=== PATIENT | female | born 1970 ===

== ENCOUNTER 2017-02-08 19:51 | Emergency (ER) | payer OTHER ==
--- NOTE | 2017-02-08 21:56 | ED CLINICAL REPORT ---
Clinical Report - Physicians/Mid Levels [facility] [address] [place] [address] 02/08/2017 19:56 Patient: JOLLY DURBIN Time Seen: 20:32; initial patient contact, initial documentation, patient care assumed. Arrived- By private vehicle. Historian- patient. HISTORY OF PRESENT ILLNESS Chief Complaint: DYSURIA. This started today and still present. It was abrupt in onset. The symptoms are described as moderate. Modifying factors. Not worsened by anything. Not relieved by anything. No abdominal pain, pelvic pain, vaginal pain, low back pain or flank pain. No abnormal bleeding, vaginal discharge or pain with urination. The patient has had urinary frequency and hematuria. The patient has had urgency of urination (has urge to go, but then very little comes out). Not sexually active. Denies current . Similar symptoms previously: Occasionally, milder. Recent medical care: Not recently seen/assessed. REVIEW OF SYSTEMS No vomiting, diarrhea, fever, difficulty breathing or chest pain. All systems otherwise negative, except as recorded above. PAST HISTORY See nurses notes. ( PROBLEMS: UTI - Urinary Tract Infection. --20:25 Luz Florian, R.N. ADDITIONAL SURGERIES: . Jackelyn leon. --20:25 Luz Florian, R.N.). SOCIAL HISTORY Never smoker. Occasional alcohol use. No drug use. No recent travel. Is a local resident. FAMILY HISTORY Negative. ADDITIONAL NOTES The nursing notes have been reviewed with agreement regarding the chief complaint, HPI, ROS, PMH and patient medications and allergies. PHYSICAL EXAM Vital Signs: 02/08/2017 20:23 BP: 102/84. HR: 97. RR: 18. O2 saturation: 100%. Temp: 98.3 F. Pain level now: 0/10. Have been reviewed as normal and appear to be correct. Appearance: Alert. Oriented X3. No acute distress. HEENT: Normal external inspection. ENT: Pharynx normal. Neck: Neck supple. CVS: Heart sounds normal. Respiratory: No respiratory distress. Breath sounds normal. Chest nontender. Abdomen: Soft and nontender. Bowel sounds normal. No organomegaly. No mass. Mildly obese. Back: Normal external inspection. Skin: Skin warm and dry. Normal skin color. No rash. Normal skin turgor. Extremities: Extremities nontender. No lower extremity edema. Neuro: Oriented X 3. Mood/affect normal. No motor deficit. No sensory deficit. LABS, X-RAYS, AND EKG Laboratory Tests: UA-Culture if indicated: (MICHAEL: 02/08/2017 20:25) ( [facility] 02/08/2017 21:23) Final results Test Result Flag Units (Reference) URINE COLOR STRAW URINE APPEARANCE SL CLOUDY URINE GLUCOSE NEGATIVE (NEGATIVE) URINE BILIRUBIN NEGATIVE (NEGATIVE) URINE KETONE NEGATIVE (NEGATIVE) URINE SPECIFIC GRAVITY 1.015 (1.010-1.030) URINE PH 7.0 (5.0-8.0) URINE PROTEIN 1+ (NEGATIVE) URINE UROBILINOGEN 0.2 EU/dL (0.2-1.0) URINE NITRITE POSITIVE (NEGATIVE) URINE BLOOD 2+ (NEGATIVE) URINE LEUK ESTERASE POSITIVE (NEGATIVE) URINE RBC 5-10 rbc/hpf (0-1) URINE WBC 50-75 wbc/hpf (0-1) URINE EPITHELIAL CELLS 1-3 EPI/hpf (0-5) URINE BACTERIA MODERATE (2+ TO 3+) (NONE SEEN) URINE COMMENT CULTURE INDICATED URINE CULTURES ARE SET-UP BASED ON THE FOLLOWING CRITERIA:POSITIVE NITRITEPOSITIVE LEUKOCYTE ESTERASEGREATER THAN 10 WHITE BLOOD CELLSMODERATE (2+) OR GREATER BACTERIA Urine: (MICHAEL: 02/08/2017 20:25) ( [facility] 02/08/2017 21:08) Final results Test Result Flag Units (Reference) URINE NEGATIVE . PROGRESS AND PROCEDURES Patient counseled in person regarding the patient's stable condition, test results and diagnosis. 21:37. Differential Diagnosis: Other possible considerations: uti, pyelo, kidney disease, renal stones. Above considerations are based on history, physical exam, reassessment and laboratory data. Differential diagnosis was discussed with patient. Disposition: Discharged home in good and unchanged condition (21:56). Condition: good and stable. CLINICAL IMPRESSION Acute urinary tract infection with cystitis. No pyelonephritis or hematuria. Not associated with indwelling catheter or obstruction. INSTRUCTIONS Drink plenty of fluids for the next 24 hours until better. Warnings: GENERAL WARNINGS: Return or contact your physician immediately if your condition worsens or changes unexpectedly, if not improving as expected, or if other problems arise. Specifically return if problem worsens. Prescription Medications: Pyridium 200 mg: take 1 orally every 8 hours as needed for urinary problems. Dispense six (6). No refills. Substitution is permissible. Bactrim DS 800 mg / 160 mg: Take 1 tablet orally every 12 hours for 7 days. Dispense fourteen (14). No refills. Substitution is permissible. Follow-up: Follow up with your doctor in about three days even if well. Call for an appointment. Summary of care provided to patient. Understanding of the discharge instructions verbalized by patient. (Electronically signed by Jolly Danielle A.R.N.P. 02/08/2017 23:11)
--- NOTE | 2017-02-08 21:56 | ED ORDER SUMMARY ---
..... Patient: RAMAKRISHNAJOLLY OrderSheet [facility] VisitID: [id number] [place] [address] 46y, F Registration Date/Time: 02/08/2017 ORDER SHEET Weight: 86.1 kg Allergies: No Known Drug Allergy GENERAL ORDERS: Bladder Scan (20:32 02/08/2017 HBivens A.R.N.P.) (20:46 JSanders R.N.) UA-Culture if indicated Urgent (20:48 02/08/2017 HBivens A.R.N.P.) (20:48 JSanders R.N.) Urine Urgent (20:48 02/08/2017 HBivens A.R.N.P.) (20:48 JSanders R.N.) MEDICATION ORDERS: IV FLUIDS: ORDER SHEET NOTES: [Electronically signed by Daiana Bejarano R.N. (22:08 02/08/2017)] [Electronically signed by Jolly Danielle.R.N.P. (23:11 02/08/2017)] [Electronically locked/signed by Daiana Bejarano R.N. (22:08 02/08/2017)]
--- NOTE | 2017-02-08 21:56 | ED ORDER SUMMARY ---
..... Patient: RAMAKRISHNAJOLLY OrderSheet [facility] VisitID: [id number] [address] [place] [address] 46y, F Registration Date/Time: 02/08/2017 ORDER SHEET Weight: 86.1 kg Allergies: No Known Drug Allergy GENERAL ORDERS: Bladder Scan (20:32 02/08/2017 HBivens A.R.N.P.) (20:46 JSanders R.N.) UA-Culture if indicated Urgent (20:48 02/08/2017 HBivens A.R.N.P.) (20:48 JSanders R.N.) Urine Urgent (20:48 02/08/2017 HBivens A.R.N.P.) (20:48 JSanders R.N.) MEDICATION ORDERS: IV FLUIDS: ORDER SHEET NOTES: [Electronically signed by Daiana Bejarano R.N. (22:08 02/08/2017)] [Electronically signed by Jolly Danielle.R.N.P. (23:11 02/08/2017)] [Electronically locked/signed by Daiana Bejarano R.N. (22:08 02/08/2017)]
--- NOTE | 2017-02-08 21:56 | ED NURSING NOTES ---
Clinical Report - Nurses [facility] [address] [place] [address] 02/08/2017 19:56 Patient: PADILLA DURBIN TRIAGE Triage time 20:Feb 08 2017. Acuity: LEVEL 3. Chief Complaint: URGENCY and FREQUENCY. 20:27 02/08/17. SEPSIS SCREEN: Sepsis Screen. Negative (no infection suspected/documented). YESY COMA SCORE: Yesy Coma Scale: 15- eyes open spontaneously (4); best verbal response- oriented x 4 (5); best motor response- obeys commands (6). --20:27 Luz Florian R.N. 20:23 02/08/17. BP: 102/84 (regular adult cuff) taken on the left arm, while sitting. HR: 97. RR: 18. O2 saturation: 100% on room air. Temp: 98.3 F (oral). Pain level now: 0/10. --20:27 Luz Florian R.N. 20:29 02/08/17. --20:29 Luz Florian R.N. Weight: 86.1 kg. Height/Length: 63 inches. BMI: 33.6. --20:24 Luz Florian R.N. Medications None. --20:24 Luz Florian R.N. Allergies No Known Drug Allergy. --20:24 Luz Florian R.N. History Historian: patient. Primary physician ([facility]). This started today. She has had hematuria. Treatment DOG RACES MANAGER: None. PAST MEDICAL HX: Last normal menstrual period was 1 week ago- months ago. SOCIAL HX: Never smoker. Occasional alcohol use. No drug use. No infectious disease exposure. ABUSE ASSESSMENT: No report of abuse. SELF HARM ASSESSMENT: A self harm assessment was performed. The patient answered "no" to the question "Do you have thoughts of harming or killing yourself?" and "Have you recently had thoughts about harming or killing others?". --20:27 Luz Florian R.N. ( Patient says she feels pressure like she has to urinate but does not urinate too much, She has had this problem before when she had a UTI). --20:29 Luz Florian R.N. PROBLEMS: UTI - Urinary Tract Infection. --20:25 Luz Florian R.N. ADDITIONAL SURGERIES: . Jackelyn leon. --20:25 Luz Florian R.N. Interventions ID band on patient. To treatment room. --20:27 Luz Florian R.N. PHYSICAL ASSESSMENT 20:28 02/08/17. Ambulatory to room. Patient gowned. GENERAL / NEURO / PSYCH: Alert. Oriented X 4. Appears in no acute distress. HEENT: Mucous membranes are pink. RESPIRATORY: Respirations not labored. Breath sounds within normal limits. CVS: Normal heart rate and rhythm. Capillary refill less than 2 seconds. GI / : Abdomen soft and nontender. Bowel sounds within normal limits. No vaginal bleeding. No vaginal discharge. No genital lesions noted. SKIN: Skin is warm and dry. --20:28 Luz Florian R.N. NURSING PROGRESS NOTES 20:28 02/08/17. The plan of care for this patient has been created. Monitoring of patient in place. Patient gowned. Head of bed elevated. Reassurance given. Two patient identifiers checked. Call light placed in reach. Side rails up x 1. Bed placed in lowest position. Brakes of bed on. Patient ready for evaluation- chart flagged and ED physician notified. --20:28 Luz Florian R.N. 20:47 02/08/17. ( Bladder scan resulted 65cc). --20:47 Luz Florian R.N. ( Patient notified of her UTI, not , she would like to just get a script and leave. Will inform RECORD CLERK). --21:32 Luz Florian R.N. 21:30 02/08/17. BP: 94/63 (regular adult cuff) taken on the left arm, while sitting. HR: 89. RR: 18. O2 saturation: 99% on room air. Pain level now: 0/10. --21:32 Luz Florian R.N. DISPOSITION / DISCHARGE 21:30 02/08/17. BP: 94/63 (regular adult cuff) taken on the left arm, while sitting. HR: 89. RR: 18. O2 saturation: 99% on room air. Pain level now: 0/10. --22:07 Daiana Bejarano R.N. Condition at departure: stable. No learning barriers present. Discharge instructions provided and reviewed with the patient. Reviewed medication(s) side effects, precautions, dosing and course information. Prescription(s) given to the patient. Patient verbalized understanding. Written instructions provided in Ugandan. The patient was discharged home and accompanied by street openings inspector. She left the Emergency Department ambulatory and via private vehicle. Rn Procedures driving. --22:08 Daiana Bejarano R.N. Locked/Released at 02/08/2017 22:08 by Daiana Bejarano R.N.
--- NOTE | 2017-02-08 21:56 | ED NURSING NOTES ---
Clinical Report - Nurses [facility] [address] [place] [address] 02/08/2017 19:56 Patient: PADILLA DURBIN TRIAGE Triage time 20:Feb 08 2017. Acuity: LEVEL 3. Chief Complaint: URGENCY and FREQUENCY. 20:27 02/08/17. SEPSIS SCREEN: Sepsis Screen. Negative (no infection suspected/documented). YESY COMA SCORE: Yesy Coma Scale: 15- eyes open spontaneously (4); best verbal response- oriented x 4 (5); best motor response- obeys commands (6). --20:27 Luz Florian R.N. 20:23 02/08/17. BP: 102/84 (regular adult cuff) taken on the left arm, while sitting. HR: 97. RR: 18. O2 saturation: 100% on room air. Temp: 98.3 F (oral). Pain level now: 0/10. --20:27 Luz Florian R.N. 20:29 02/08/17. --20:29 Luz Florian R.N. Weight: 86.1 kg. Height/Length: 63 inches. BMI: 33.6. --20:24 Luz Florian R.N. Medications None. --20:24 Luz Florian R.N. Allergies No Known Drug Allergy. --20:24 Luz Florian R.N. History Historian: patient. Primary physician ([facility]). This started today. She has had hematuria. Treatment ACID WASHER OPERATOR: None. PAST MEDICAL HX: Last normal menstrual period was 1 week ago- months ago. SOCIAL HX: Never smoker. Occasional alcohol use. No drug use. No infectious disease exposure. ABUSE ASSESSMENT: No report of abuse. SELF HARM ASSESSMENT: A self harm assessment was performed. The patient answered "no" to the question "Do you have thoughts of harming or killing yourself?" and "Have you recently had thoughts about harming or killing others?". --20:27 Luz Florian R.N. ( Patient says she feels pressure like she has to urinate but does not urinate too much, She has had this problem before when she had a UTI). --20:29 Luz Florian R.N. PROBLEMS: UTI - Urinary Tract Infection. --20:25 Luz Florian R.N. ADDITIONAL SURGERIES: . Jackelyn leon. --20:25 Luz Florian R.N. Interventions ID band on patient. To treatment room. --20:27 Luz Florian R.N. PHYSICAL ASSESSMENT 20:28 02/08/17. Ambulatory to room. Patient gowned. GENERAL / NEURO / PSYCH: Alert. Oriented X 4. Appears in no acute distress. HEENT: Mucous membranes are pink. RESPIRATORY: Respirations not labored. Breath sounds within normal limits. CVS: Normal heart rate and rhythm. Capillary refill less than 2 seconds. GI / : Abdomen soft and nontender. Bowel sounds within normal limits. No vaginal bleeding. No vaginal discharge. No genital lesions noted. SKIN: Skin is warm and dry. --20:28 Luz Florian R.N. NURSING PROGRESS NOTES 20:28 02/08/17. The plan of care for this patient has been created. Monitoring of patient in place. Patient gowned. Head of bed elevated. Reassurance given. Two patient identifiers checked. Call light placed in reach. Side rails up x 1. Bed placed in lowest position. Brakes of bed on. Patient ready for evaluation- chart flagged and ED physician notified. --20:28 Luz Florian R.N. 20:47 02/08/17. ( Bladder scan resulted 65cc). --20:47 Luz Florian R.N. ( Patient notified of her UTI, not , she would like to just get a script and leave. Will inform HYDRAULIC AND PLUMBING INSTALLER). --21:32 Luz Florian R.N. 21:30 02/08/17. BP: 94/63 (regular adult cuff) taken on the left arm, while sitting. HR: 89. RR: 18. O2 saturation: 99% on room air. Pain level now: 0/10. --21:32 Luz Florian R.N. DISPOSITION / DISCHARGE 21:30 02/08/17. BP: 94/63 (regular adult cuff) taken on the left arm, while sitting. HR: 89. RR: 18. O2 saturation: 99% on room air. Pain level now: 0/10. --22:07 Daiana Bejarano R.N. Condition at departure: stable. No learning barriers present. Discharge instructions provided and reviewed with the patient. Reviewed medication(s) side effects, precautions, dosing and course information. Prescription(s) given to the patient. Patient verbalized understanding. Written instructions provided in Welsh. The patient was discharged home and accompanied by mirror installer. She left the Emergency Department ambulatory and via private vehicle. Line Maintenance Technician driving. --22:08 Daiana Bejarano R.N. Locked/Released at 02/08/2017 22:08 by Daiana Bejarano R.N.
--- NOTE | 2017-02-08 23:11 | ED MED RECONCILIATION SUMMARY ---
Patient: RAMAKRISHNAJOLLY Medication Reconciliation Report [facility] VisitID: [id number] [place] [address] 46y, F Registration Date/Time: 02/08/2017 Weight: 86.1 kg Height/Length: 63 in. BMI: 33.6 ALLERGIES: No Known Drug Allergy The patient's Home Medications are listed below: NONE. The source(s) of the original Home Medication information: Not obtained. The following Medications were given to the patient in the Emergency Department: None. The following Medications were prescribed to the patient: Pyridium 200 mg: take 1 orally every 8 hours as needed for urinary problems. Dispense six (6). No refills. Substitution is permissible. -- Jolly Danielle, Sada.R.N.P. Bactrim DS 800 mg / 160 mg: Take 1 tablet orally every 12 hours for 7 days. Dispense fourteen (14). No refills. Substitution is permissible. -- Jolly Danielle A.R.N.P.
--- NOTE | 2017-02-08 23:11 | ED DISCHARGE INSTRUCTIONS ---
Patient: JOLLY DURBIN General Instructions [facility] VisitID: [id number] [place] [address] 46y, F Registration Date/Time: 02/08/2017 Acute urinary tract infection with cystitis. No pyelonephritis or hematuria. Not associated with indwelling catheter or obstruction. INSTRUCTIONS Drink plenty of fluids for the next 24 hours until better. Warnings: GENERAL WARNINGS: Return or contact your physician immediately if your condition worsens or changes unexpectedly, if not improving as expected, or if other problems arise. Specifically return if problem worsens. Prescription Medications: Pyridium 200 mg: take 1 orally every 8 hours as needed for urinary problems. Dispense six (6). No refills. Substitution is permissible. Bactrim DS 800 mg / 160 mg: Take 1 tablet orally every 12 hours for 7 days. Dispense fourteen (14). No refills. Substitution is permissible. Follow-up: Follow up with your doctor in about three days even if well. Call for an appointment. Summary of care provided to patient. Understanding of the discharge instructions verbalized by patient. ADDITIONAL INFORMATION Bladder Infection,Female (Adult) A bladder infection ("cystitis" or "UTI") usually causes a constant urge to urinate and a burning when passing urine. Urine may be cloudy, smelly or dark. There may be pain in the lower abdomen. A bladder infection occurs when bacteria from the vaginal area enter the bladder opening (urethra). This can occur from sexual intercourse, wearing tight clothing, dehydration and other factors. Home Care: Drink lots of fluids (at least 6-8 glasses a day, unless you must restrict fluids for other medical reasons). This will force the medicine into your urinary system and flush the bacteria out of your body. Avoid sexual intercourse until your symptoms are gone. Avoid caffeine, alcohol and spicy foods. These can irritate the bladder. A bladder infection is treated with antibiotics. You may also be given Pyridium (generic = phenazopyridine) to reduce the burning sensation. This medicine will cause your urine to become a bright orange color. The orange urine may stain clothing. You may wear a pad or panty-liner to protect clothing. Preventing Future Infections: Always wipe from front to back after a bowel movement. Keep the genital area clean and dry. Drink plenty of fluids each day to avoid dehydration. Both sexual partners should wash before intercourse. Urinate right after intercourse to flush out the bladder. Wear cotton underwear and cotton-lined panty hose; avoid tight-fitting pants. If you are on control pills and are having frequent bladder infections, discuss with your doctor. Follow Up: Return to this facility or see your doctor if ALL symptoms are not gone after three days of treatment. Get Prompt Medical Attention if any of the following occur: Fever of 100.4F (38C) or higher, or as directed by your healthcare provider No improvement by the third day of treatment Increasing back or abdominal pain Repeated vomiting; unable to keep medicine down Weakness, dizziness or fainting Vaginal discharge Pain, redness or swelling in the labia (outer vaginal area) Phenazopyridine Hydrochloride Oral tablet What is this medicine? PHENAZOPYRIDINE (fen az oh PEER i cynthia) is a pain reliever. It is used to stop the pain, burning, or discomfort caused by infection or irritation of the urinary tract. This medicine is not an antibiotic. It will not cure a urinary tract infection. How should I use this medicine? Take this medicine by mouth with a glass of water. Follow the directions on the prescription label. Take after meals. Take your doses at regular intervals. Do not take your medicine more often than directed. Do not skip doses or stop your medicine early even if you feel better. Do not stop taking except on your doctor's advice. Talk to your pharmacist technician regarding the use of this medicine in children. Special care may be needed. What side effects may I notice from receiving this medicine? Side effects that you should report to your doctor or health animal caregiver as soon as possible: allergic reactions like skin rash, itching or hives, swelling of the face, lips, or tongue blue or purple color of the skin difficulty breathing fever less urine unusual bleeding, bruising unusual tired, weak vomiting yellowing of the eyes or skin Side effects that usually do not require medical attention (report to your doctor or health animal caregiver if they continue or are bothersome): dark urine headache stomach upset What may interact with this medicine? Interactions are not expected. What if I miss a dose? If you miss a dose, take it as soon as you can. If it is almost time for your next dose, take only that dose. Do not take double or extra doses. Where should I keep my medicine? Keep out of the reach of children. Store at room temperature between 15 and 30 degrees C (59 and 86 degrees F). Protect from light and moisture. Throw away any unused medicine after the expiration date. What should I tell my health care provider before I take this medicine? They need to know if you have any of these conditions: bnvvwbg-1-bjuwmxcow dehydrogenase (G6PD) deficiency kidney disease an unusual or allergic reaction to phenazopyridine, other medicines, foods, dyes, or preservatives or trying to get breast-feeding What should I watch for while using this medicine? Tell your doctor or health animal caregiver if your symptoms do not improve or if they get worse. This medicine colors body fluids red. This effect is harmless and will go away after you are done taking the medicine. It will change urine to an dark orange or red color. The red color may stain clothing. Soft contact lenses may become permanently stained. It is best not to wear soft contact lenses while taking this medicine. If you are diabetic you may get a false positive result for sugar in your urine. Talk to your health care provider. Sulfamethoxazole, Trimethoprim Oral tablet What is this medicine? SULFAMETHOXAZOLE; TRIMETHOPRIM or SMX-TMP (suhl fuh meth OK theresa zohl; trye METH oh prim) is a combination of a sulfonamide antibiotic and a second antibiotic, trimethoprim. It is used to treat or prevent certain kinds of bacterial infections. It will not work for colds, flu, or other viral infections. How should I use this medicine? Take this medicine by mouth with a full glass of water. Follow the directions on the prescription label. Take your medicine at regular intervals. Do not take it more often than directed. Do not skip doses or stop your medicine early. Talk to your pharmacist technician regarding the use of this medicine in children. Special care may be needed. This medicine has been used in children as young as 2 months of age. What side effects may I notice from receiving this medicine? Side effects that you should report to your doctor or health animal caregiver as soon as possible: allergic reactions like skin rash or hives, swelling of the face, lips, or tongue breathing problems fever or chills, sore throat irregular heartbeat, chest pain joint or muscle pain pain or difficulty passing urine red pinpoint spots on skin redness, blistering, peeling or loosening of the skin, including inside the mouth unusual bleeding or bruising unusually weak or tired yellowing of the eyes or skin Side effects that usually do not require medical attention (report to your doctor or health animal caregiver if they continue or are bothersome): diarrhea dizziness headache loss of appetite nausea, vomiting nervousness What may interact with this medicine? Do not take this medicine with any of the following medications: aminobenzoate potassium dofetilide metronidazole This medicine may also interact with the following medications: ROMEL inhibitors like benazepril, enalapril, lisinopril, and ramipril cyclosporine digoxin diuretics indomethacin medicines for diabetes methenamine methotrexate phenytoin potassium supplements pyrimethamine sulfinpyrazone tricyclic antidepressants warfarin What if I miss a dose? If you miss a dose, take it as soon as you can. If it is almost time for your next dose, take only that dose. Do not take double or extra doses. Where should I keep my medicine? Keep out of the reach of children. Store at room temperature between 20 to 25 degrees C (68 to 77 degrees F). Protect from light. Throw away any unused medicine after the expiration date. What should I tell my health care provider before I take this medicine? They need to know if you have any of these conditions: anemia asthma being treated with anticonvulsants if you frequently drink alcohol containing drinks kidney disease liver disease low level of folic acid or ptyyylx-4-zuvltfhuk dehydrogenase poor nutrition or malabsorption porphyria severe allergies thyroid disorder an unusual or allergic reaction to sulfamethoxazole, trimethoprim, sulfa drugs, other medicines, foods, dyes, or preservatives or trying to get breast-feeding What should I watch for while using this medicine? Tell your doctor or health animal caregiver if your symptoms do not improve. Drink several glasses of water a day to reduce the risk of kidney problems. Do not treat diarrhea with over the counter products. Contact your doctor if you have diarrhea that lasts more than 2 days or if it is severe and watery. This medicine can make you more sensitive to the sun. Keep out of the sun. If you cannot avoid being in the sun, wear protective clothing and use a sunscreen. Do not use sun lamps or tanning beds/booths. You have been given the following additional information: Bladder Infection, Female (Adult) Phenazopyridine Hydrochloride Oral tablet Sulfamethoxazole, Trimethoprim Oral tablet (Electronically signed by Jolly Danielle A.R.N.P. 02/08/2017 23:11)
--- NOTE | 2017-02-08 23:11 | ED MED RECONCILIATION SUMMARY ---
Patient: RAMAKRISHNAJOLLY Medication Reconciliation Report [facility] VisitID: [id number] [place] [address] 46y, F Registration Date/Time: 02/08/2017 Weight: 86.1 kg Height/Length: 63 in. BMI: 33.6 ALLERGIES: No Known Drug Allergy The patient's Home Medications are listed below: NONE. The source(s) of the original Home Medication information: Not obtained. The following Medications were given to the patient in the Emergency Department: None. The following Medications were prescribed to the patient: Pyridium 200 mg: take 1 orally every 8 hours as needed for urinary problems. Dispense six (6). No refills. Substitution is permissible. -- Jolly Danielle, Sada.R.N.P. Bactrim DS 800 mg / 160 mg: Take 1 tablet orally every 12 hours for 7 days. Dispense fourteen (14). No refills. Substitution is permissible. -- Jolly Danielle A.R.N.P.
--- NOTE | 2017-02-08 23:11 | ED MAR SUMMARY ---
..... Medication Administration Record [facility] [address] [place], [place] [id number] Patient: PADILLA DURBIN Visit ID: [id number] 46y, F Weight: 86.1 kg Height/Length: 63 in BMI: 33.6 ALLERGIES: No Known Drug Allergy
--- NOTE | 2017-02-08 23:11 | ED MAR SUMMARY ---
..... Medication Administration Record [facility] [address] [place] [id number] Patient: PADILLA DURBIN Visit ID: [id number] 46y, F Weight: 86.1 kg Height/Length: 63 in BMI: 33.6 ALLERGIES: No Known Drug Allergy
--- NOTE | 2017-02-08 23:11 | ED DISCHARGE INSTRUCTIONS ---
Patient: JOLLY DURBIN General Instructions [facility] VisitID: [id number] [place] [address] 46y, F Registration Date/Time: 02/08/2017 Acute urinary tract infection with cystitis. No pyelonephritis or hematuria. Not associated with indwelling catheter or obstruction. INSTRUCTIONS Drink plenty of fluids for the next 24 hours until better. Warnings: GENERAL WARNINGS: Return or contact your physician immediately if your condition worsens or changes unexpectedly, if not improving as expected, or if other problems arise. Specifically return if problem worsens. Prescription Medications: Pyridium 200 mg: take 1 orally every 8 hours as needed for urinary problems. Dispense six (6). No refills. Substitution is permissible. Bactrim DS 800 mg / 160 mg: Take 1 tablet orally every 12 hours for 7 days. Dispense fourteen (14). No refills. Substitution is permissible. Follow-up: Follow up with your doctor in about three days even if well. Call for an appointment. Summary of care provided to patient. Understanding of the discharge instructions verbalized by patient. ADDITIONAL INFORMATION Bladder Infection,Female (Adult) A bladder infection ("cystitis" or "UTI") usually causes a constant urge to urinate and a burning when passing urine. Urine may be cloudy, smelly or dark. There may be pain in the lower abdomen. A bladder infection occurs when bacteria from the vaginal area enter the bladder opening (urethra). This can occur from sexual intercourse, wearing tight clothing, dehydration and other factors. Home Care: Drink lots of fluids (at least 6-8 glasses a day, unless you must restrict fluids for other medical reasons). This will force the medicine into your urinary system and flush the bacteria out of your body. Avoid sexual intercourse until your symptoms are gone. Avoid caffeine, alcohol and spicy foods. These can irritate the bladder. A bladder infection is treated with antibiotics. You may also be given Pyridium (generic = phenazopyridine) to reduce the burning sensation. This medicine will cause your urine to become a bright orange color. The orange urine may stain clothing. You may wear a pad or panty-liner to protect clothing. Preventing Future Infections: Always wipe from front to back after a bowel movement. Keep the genital area clean and dry. Drink plenty of fluids each day to avoid dehydration. Both sexual partners should wash before intercourse. Urinate right after intercourse to flush out the bladder. Wear cotton underwear and cotton-lined panty hose; avoid tight-fitting pants. If you are on control pills and are having frequent bladder infections, discuss with your doctor. Follow Up: Return to this facility or see your doctor if ALL symptoms are not gone after three days of treatment. Get Prompt Medical Attention if any of the following occur: Fever of 100.4F (38C) or higher, or as directed by your healthcare provider No improvement by the third day of treatment Increasing back or abdominal pain Repeated vomiting; unable to keep medicine down Weakness, dizziness or fainting Vaginal discharge Pain, redness or swelling in the labia (outer vaginal area) Phenazopyridine Hydrochloride Oral tablet What is this medicine? PHENAZOPYRIDINE (fen az oh PEER i cynthia) is a pain reliever. It is used to stop the pain, burning, or discomfort caused by infection or irritation of the urinary tract. This medicine is not an antibiotic. It will not cure a urinary tract infection. How should I use this medicine? Take this medicine by mouth with a glass of water. Follow the directions on the prescription label. Take after meals. Take your doses at regular intervals. Do not take your medicine more often than directed. Do not skip doses or stop your medicine early even if you feel better. Do not stop taking except on your doctor's advice. Talk to your electrocardiograph operator regarding the use of this medicine in children. Special care may be needed. What side effects may I notice from receiving this medicine? Side effects that you should report to your doctor or health date night caregiver as soon as possible: allergic reactions like skin rash, itching or hives, swelling of the face, lips, or tongue blue or purple color of the skin difficulty breathing fever less urine unusual bleeding, bruising unusual tired, weak vomiting yellowing of the eyes or skin Side effects that usually do not require medical attention (report to your doctor or health date night caregiver if they continue or are bothersome): dark urine headache stomach upset What may interact with this medicine? Interactions are not expected. What if I miss a dose? If you miss a dose, take it as soon as you can. If it is almost time for your next dose, take only that dose. Do not take double or extra doses. Where should I keep my medicine? Keep out of the reach of children. Store at room temperature between 15 and 30 degrees C (59 and 86 degrees F). Protect from light and moisture. Throw away any unused medicine after the expiration date. What should I tell my health care provider before I take this medicine? They need to know if you have any of these conditions: ngwmype-0-urfxfrygq dehydrogenase (G6PD) deficiency kidney disease an unusual or allergic reaction to phenazopyridine, other medicines, foods, dyes, or preservatives or trying to get breast-feeding What should I watch for while using this medicine? Tell your doctor or health date night caregiver if your symptoms do not improve or if they get worse. This medicine colors body fluids red. This effect is harmless and will go away after you are done taking the medicine. It will change urine to an dark orange or red color. The red color may stain clothing. Soft contact lenses may become permanently stained. It is best not to wear soft contact lenses while taking this medicine. If you are diabetic you may get a false positive result for sugar in your urine. Talk to your health care provider. Sulfamethoxazole, Trimethoprim Oral tablet What is this medicine? SULFAMETHOXAZOLE; TRIMETHOPRIM or SMX-TMP (suhl fuh meth OK theresa zohl; trye METH oh prim) is a combination of a sulfonamide antibiotic and a second antibiotic, trimethoprim. It is used to treat or prevent certain kinds of bacterial infections. It will not work for colds, flu, or other viral infections. How should I use this medicine? Take this medicine by mouth with a full glass of water. Follow the directions on the prescription label. Take your medicine at regular intervals. Do not take it more often than directed. Do not skip doses or stop your medicine early. Talk to your electrocardiograph operator regarding the use of this medicine in children. Special care may be needed. This medicine has been used in children as young as 2 months of age. What side effects may I notice from receiving this medicine? Side effects that you should report to your doctor or health date night caregiver as soon as possible: allergic reactions like skin rash or hives, swelling of the face, lips, or tongue breathing problems fever or chills, sore throat irregular heartbeat, chest pain joint or muscle pain pain or difficulty passing urine red pinpoint spots on skin redness, blistering, peeling or loosening of the skin, including inside the mouth unusual bleeding or bruising unusually weak or tired yellowing of the eyes or skin Side effects that usually do not require medical attention (report to your doctor or health date night caregiver if they continue or are bothersome): diarrhea dizziness headache loss of appetite nausea, vomiting nervousness What may interact with this medicine? Do not take this medicine with any of the following medications: aminobenzoate potassium dofetilide metronidazole This medicine may also interact with the following medications: ROMEL inhibitors like benazepril, enalapril, lisinopril, and ramipril cyclosporine digoxin diuretics indomethacin medicines for diabetes methenamine methotrexate phenytoin potassium supplements pyrimethamine sulfinpyrazone tricyclic antidepressants warfarin What if I miss a dose? If you miss a dose, take it as soon as you can. If it is almost time for your next dose, take only that dose. Do not take double or extra doses. Where should I keep my medicine? Keep out of the reach of children. Store at room temperature between 20 to 25 degrees C (68 to 77 degrees F). Protect from light. Throw away any unused medicine after the expiration date. What should I tell my health care provider before I take this medicine? They need to know if you have any of these conditions: anemia asthma being treated with anticonvulsants if you frequently drink alcohol containing drinks kidney disease liver disease low level of folic acid or crxlbgt-1-xlibodgzf dehydrogenase poor nutrition or malabsorption porphyria severe allergies thyroid disorder an unusual or allergic reaction to sulfamethoxazole, trimethoprim, sulfa drugs, other medicines, foods, dyes, or preservatives or trying to get breast-feeding What should I watch for while using this medicine? Tell your doctor or health date night caregiver if your symptoms do not improve. Drink several glasses of water a day to reduce the risk of kidney problems. Do not treat diarrhea with over the counter products. Contact your doctor if you have diarrhea that lasts more than 2 days or if it is severe and watery. This medicine can make you more sensitive to the sun. Keep out of the sun. If you cannot avoid being in the sun, wear protective clothing and use a sunscreen. Do not use sun lamps or tanning beds/booths. You have been given the following additional information: Bladder Infection, Female (Adult) Phenazopyridine Hydrochloride Oral tablet Sulfamethoxazole, Trimethoprim Oral tablet (Electronically signed by Jolly Danielle A.R.N.P. 02/08/2017 23:11)
== END 2017-02-08 22:00 | disposition home or self-care (01) ==
LOC: ED SRH 19:51
DX: N30.00 Acute cystitis without hematuria (principal); B96.20 Unspecified Escherichia coli [E. coli] as the cause of diseases classified elsewhere
CPT/HCPCS: 90004; 90148; 90469; 93070